=== PATIENT | male | born 1940 | race Caucasian/White ===

== ENCOUNTER 2017-10-25 10:44 | Emergency (ER) | payer MEDICARE, OTHER ==
[2017-10-25] MEDS: Potassium Chloride 20 MEQ Tab.ER PO SCH (13:52)
[2017-10-25] MEDS ORDERED: Iopamidol 755 MG/ML 150 ML Bottle IV ONE (14:28)
[2017-10-25] MEDS: oxyCODONE 5 MG Tab PO ONE (14:32)
[2017-10-25] MEDS: Potassium Chloride 20 MEQ Tab.ER PO ONE (15:54)
[2017-10-25] MEDS ORDERED: Potassium Chloride 20 MEQ Tab.ER PO SCH (21:00)
[2017-10-25 21:27] VITALS: BP 130/76
--- NOTE | 2017-10-26 10:50 | CR ---
INDICATION: Short of breath. CHEST: An AP portable upright view of the chest 10/25/2017 was compared with and revealed prominent upper lung field pulmonary vasculature, suggestion of a prominent heart suggesting CHF. Interstitial lung edema is also suggested with interstitial markings prominent. Elevated left hemidiaphragm is again noted with markedly dilated splenic flexure of colon extending into dilated transverse and descending colon. The dilatation of the colon appears to be greater than on the previous study. The possibility of a distal mechanical obstruction of the large bowel cannot be excluded. IMPRESSION: 1. CHF with interstitial lung edema, cannot exclude areas of patchy pneumonia at the lung bases. 2. Markedly elevated left hemidiaphragm again noted with dilated colon in that area. Dilatation is greater than on the previous study. The possibility of a distal obstructive process of mechanical nature at the distal colon cannot be entirely excluded - correlate clinically. MTDD
--- NOTE | 2017-10-27 09:36 | ER ---
DATE SEEN: 10/25/2017 EKG REPORT: Sinus rhythm, QT corrected is 521, prolonged. Computer read as probable anterolateral infarct. The latter seems low probability, as the only thing suggested were the Q-waves in V3, V5, V6. There is no ST elevation. I disagree; this infarct is old, and that is based on the Q-waves greater than 35 milliseconds. Consequently, I have to agree with that latter interpretation, but he has no acute anterolateral infarct. DIAGNOSIS: Sinus rhythm, nonspecific intraventricular conduction delay with probable anterolateral infarct, old. /[id number] KEVIN/MODL
--- NOTE | 2017-10-27 11:42 | ER ---
DATE SEEN: 10/25/2017 TIME SEEN: He was seen at 1055 hours. HISTORY OF PRESENT ILLNESS: This 77-year-old senior man comes in with history of difficulty passing urine. He had voiding problems noted on October 19. He had increase in swelling of his lower extremities. These symptoms resulted in increased pain and bloating of lower abdomen. This resulted in increased shortness of breath, increased bloating, and he arrived to the hospital via EMS with 2 liters of O2, 89%, went up to 91% after he came here and was on room air. He does better sitting up. Lying down makes him more short of breath. Denies lying in bed for 3 days. Denies recent surgery. The patient is a resident of [facility] and he has had diarrhea for 3 days and anorexia and prostate cancer several years ago with diagnosis treated. The patient had difficult voiding since 10/22/2017 and this voiding will occur in small amounts. This difficulty voiding has been ongoing for the last 5 days. PAST MEDICAL HISTORY: Depression, hypertension, seasonal allergic rhinitis, dry eyes, hypokalemia, constipation. CURRENT MEDICATIONS: 1. Senna. 2. Dulcolax. 3. Wellbutrin. 4. Hytrin. 5. Senokot. 6. Multivitamins. 7. Gabapentin. 8. Lasix. 9. Vitamin D. 10.Baclofen. 11.Famotidine (GERD). 12.Afrin. 13.Calcium carbonate. 14.Cyclosporine - dry eyes. ALLERGIES: See HPI. PHYSICAL EXAMINATION: VITAL SIGNS: Blood pressure 130/70, heart rate 88 and regular, respirations 20, oxygen saturation 91% on room air. BMI is 31.9 kg/m2. Weight 115.6 kg. GENERAL: The patient is in mild distress, is markedly obese. He is in distress secondary to his discomfort and fullness in his abdomen and bloating. He is attended by his family. He is very cooperative. The patient is in 60 degrees, elevates head in the bed. HEENT: Negative. Mild arterial narrowing. Pharynx without abnormalities, semi-dry. TMs negative. Hearing is slightly decreased. NECK: No bruits. No thyromegaly. No cervical adenopathy. No jugular venous distention. No accessory muscle breathing. LUNGS: Clear without rales, rhonchi, or wheezes. HEART: S1 and S2. No murmur. No irregularity of heart. ABDOMEN: Mild fullness. Moderate distention. Moderate tympany. Moderate bulging or protrusion in the anterior abdomen without fatty overhang without panniculus. Mild generalized discomfort, with mild CVA discomfort with percussion. MUSCULOSKELETAL: Mild lumbar spinous process and interspinous ligamentous discomfort. Straight leg raise is negative. Hypoactive deep tendon reflexes. NEUROLOGICAL: Cranial nerves 2 through 12 intact. Oriented x3. FINDINGS: Hemoglobin 13, white count 6700, PMNs normal at 78, lymphs 8, monos 11, eosinophils 4, platelets 345,000, hemoglobin 13.0. Abnormal complete metabolic panel with hypokalemia and hyperchloremia secondary to Lasix use. Potassium 3.2, chloride 99, sodium 136, CO2 of 29, and GFR greater than 60 with normal liver studies. Troponin less than 0.017 and urinalysis is normal with rare bacteria. X-ray demonstrates mild interstitial lung edema. Possible patchy pneumonia, but it is unlikely in view of the patient's clinical findings. Elevated left hemidiaphragm, which causes diaphragm to be elevated at least more than 40% leaving only at least 60% elevation, leaving 40% of normal lung field visible with dilation of bowel. This is no different than what was on previous x-ray. The ultrasound demonstrated more than 1000 mL of urine in the bladder. Later, the nurse performed a bladder scan and she concurred at least 1000 mL. Ibarra catheter was placed. A 16-Chinese with Coude and confirmed the suspicion of bladder outlet obstruction. This was left in place with a urinary tract bag given to the patient. Standard bag given to the patient. DIAGNOSES: 1. Prostate outlet obstruction. 2. Obesity. 3. Shortness of breath. 4. Fullness of abdomen secondary to suggestion of adynamic ileus and also extensive bladder expansion from probably prostate outlet obstruction and retained urine 1000 plus mL urine retention. 5. Anemia and hyponatremia secondary to Lasix use. 6. No evidence for urinary tract infection. PLAN: The patient was informed that he had a large hiatus hernia. This is unchanged from previous occasion when he had previous x-rays. He had low potassium. He has Lasix and he is advised to take 4 tablets of 20 mEq of potassium today and also one tablet twice a day for a week and follow up with doctor in 4 to 5 days or earlier if worse. He also is instructed to contact his doctor and make arrangements for Urology consultation. The patient's other diagnosis is large hiatus hernia unchanged and obesity. /[id number] KEVIN/ROSEMARIE NOWAK
== END 2017-10-25 16:00 | disposition home or self-care (01) ==
LOC: FB.ED 10:44
DX: N40.0 Benign prostatic hyperplasia without lower urinary tract symptoms (principal); I10 Essential (primary) hypertension; R06.02 Shortness of breath; E66.9 Obesity, unspecified; D64.9 Anemia, unspecified; E87.1 Hypo-osmolality and hyponatremia; F32.9 Major depressive disorder, single episode, unspecified; Z79.899 Other long term (current) drug therapy; Z91.09 Other allergy status, other than to drugs and biological substances; Z68.31 Body mass index [BMI] 31.0-31.9, adult
CPT/HCPCS: 36415; 51702; 51798; 71045; 80053; 81001; 83605; 83880; 84484; 85025; 85379; 93005; 99284; A9270; 93010

== ENCOUNTER 2017-12-14 14:14 | Day surgery (SDC) | payer MEDICARE, OTHER ==
[2017-12-14] MEDS ORDERED: Sodium Chloride 0.9% 10 ML Syringe FLUSH PRN (14:33)
[2017-12-14] MEDS ORDERED: Polyethylene Glycol/Electrolytes 4,000 ML Bottle PO ONE (15:00)
[2017-12-14] MEDS ORDERED: Furosemide 40 MG Tab *PTOM PO PRN (16:00)
[2017-12-14] MEDS ORDERED: hydrOXYzine HCl 25 MG Tab PO PRN (16:26)
[2017-12-14] MEDS ORDERED: Baclofen 10 MG Tab PO PRN (16:30)
--- NOTE | 2017-12-14 16:41 | PCM.HP ---
H&P History of Present Illness - General Date of Service: 12/14/17 Admit Problem/Dx: Admission Diagnosis/Problem Admission Diagnosis/Problem Diarrhea - History of Present Illness Initial Comments - Free Text/Narative: 77 yo wm who was referred with a hx of diarrhea. He has multiple medical problems. Stools have been up to 4-5 times a day. He has never had a scope. Denies any blood or mucous. - Related Data Allergies/Adverse Reactions: Allergies Allergy/AdvReac Type Severity Reaction Status Date / Time No Known Allergies Allergy Verified 10/25/17 10:49 Home Medications: Home Meds Aspirin [Ecotrin] 325 mg PO BEDTIME 04/27/16 [History] Cholecalciferol (Vitamin D3) [Vitamin D3] 1,000 units PO DAILY@1200 04/27/16 [ History] Furosemide 40 mg PO DAILY PRN 04/27/16 [History] Gabapentin 600 mg PO TID 04/27/16 [History] Multivitamin [Multi-Vitamin Daily] 1 tab PO DAILY 04/27/16 [History] Oxybutynin 5 mg PO BEDTIME 04/27/16 [History] Sennosides/Docusate Sodium [Senna-S Tablet] 1 tab BEDTIME 04/27/16 [History] Terazosin [Hytrin] 5 mg PO BEDTIME 04/27/16 [History] Baclofen 10 mg PO QID PRN 04/28/16 [History] buPROPion [Wellbutrin SR] 150 mg PO BID 04/28/16 [History] Acetaminophen [Tylenol Extra Strength] 1,000 mg PO Q6H PRN 10/25/17 [History] Calcium Carbonate/Vitamin D3 [Calcium 500-Vit D3 600 Tablet] 1 each PO TID 10/25 [History] Famotidine 20 mg PO DAILY 10/25/17 [History] Oxymetazoline HCl [Afrin] 1 spray NS BID PRN 10/25/17 [History] Potassium Chloride [Klor-Con M20] 20 meq PO BID #20 tab.er.prt 10/25/17 [Rx] Sennosides/Docusate Sodium [Senokot-S Tablet] 1 each PO BEDTIME PRN 10/25/17 [ History] cycloSPORINE [Restasis] 1 drop EYEBOTH BID 10/25/17 [History] hydrOXYzine Pamoate [Vistaril] 25 mg PO Q8H PRN 12/14/17 [History] Past Medical History HEENT History: Reports: Cataract, Impaired Vision Other HEENT History: blind L eye, cataract R eye Cardiovascular History: Reports: None Other Cardiovascular History: hole in heart Respiratory History: Reports: Pneumonia, Recurrent, SOB Other Respiratory History: hx of pleurisy Gastrointestinal History: Reports: None Genitourinary History: Reports: Other (See Below) Other Genitourinary History: PT HAS HAD A CONTINOUS CATHETER IN PLACE SINCE OCTOBER 2017 FOR PROBLEMS. Musculoskeletal History: Reports: Arthritis, Back Pain, Chronic, Fracture, Osteoarthritis Other Musculoskeletal History: L femur fx, L elbow, L elbow, L collarbone Neurological History: Reports: CVA Other Neuro History: CVA with L sided weakness Psychiatric History: Reports: Depression Endocrine/Metabolic History: Reports: None Hematologic History: Reports: None Oncologic (Cancer) History: Reports: Prostate Other Oncologic History: has seeds placed & hasn't had problems since - Infectious Disease History Infectious Disease History: Reports: Chicken Pox, Measles, Mumps - Past Surgical History HEENT Surgical History: Reports: Adenoidectomy, Oral Surgery, Tonsillectomy Cardiovascular Surgical History: Reports: None Respiratory Surgical History: Reports: None Neurological Surgical History: Reports: Laminectomy, Other (See Below) Other Neurological Surgeries/Procedures: NEUROSTIMULATOR ELECTRODE PLACED Musculoskeletal Surgical History: Reports: Hip Replacement, Knee Replacement, Shoulder Replacement, Shoulder Surgery, Other (See Below) Other Musculoskeletal Surgeries/Procedures:: LEFT FOOT SURGERY, LEFT HIP,LEFT SHOULDER,BACK. Dermatological Surgical History: Reports: None Social & Family History - Family History Family Medical History: Noncontributory Cardiac: Reports: None Respiratory: Reports: None GI: Reports: Pancreatitis, Other (See Below) Other GI Family History: sister : Reports: None Oncologic: Reports: Leukemia - Tobacco Use Smoking Status *Q: Former Smoker - Caffeine Use Caffeine Use: Reports: Coffee Caffeine Use Comment: 2 cups coffee every day - Recreational Drug Use Recreational Drug Use: No H&P Review of Systems - Review of Systems: Review Of Systems: See Below Free Text/Narrative: Poor historian. General: Reports: No Symptoms HEENT: Reports: Other (blind left eye ) Pulmonary: Reports: No Symptoms Cardiovascular: Reports: No Symptoms Gastrointestinal: Reports: No Symptoms Exam - Exam Exam: See Below - Vital Signs Vital Signs: Last Vital Signs Temp 37.6 C 12/14/17 14:30 Pulse 85 12/14/17 14:30 Resp 20 12/14/17 14:30 BP 119/66 12/14/17 14:30 Pulse Ox 91 L 12/14/17 14:30 Weight: 110.223 kg - Exam General: Alert HEENT: Hearing Intact Lungs: Clear to Auscultation, Normal Respiratory Effort Cardiovascular: Regular Rate, Regular Rhythm GI/Abdominal Exam: Normal Bowel Sounds, Soft, Non-Tender, No Organomegaly Back Exam: Normal Inspection Extremities: Other (old fracture clavicle on the left side ) - Patient Data Lab Results Last 24 hrs: Laboratory Results - last 24 hr 12/14/17 Range/Units 15:36 Sodium 138 (135-145) mmol/L Potassium 4.0 (3.5-5.3) mmol/L Chloride 100 (100-110) mmol/L Carbon Dioxide 30 (21-32) mmol/L BUN 7 (7-18) mg/dL Creatinine 0.8 (0.70-1.30) mg/dL Est Cr Clr Drug Dosing 90.95 mL/min Estimated GFR (MDRD) > 60 (>60) BUN/Creatinine Ratio 8.8 L (9-20) Glucose 100 (80-116) mg/dL Calcium 9.0 (8.6-10.2) mg/dL Result Diagrams: 12/14/17 15:36 - Problem List (1) Diarrhea SNOMED Code(s): 58202500 ICD Code: R19.7 - DIARRHEA, UNSPECIFIED Status: Acute Current Visit: Yes Qualifiers: Diarrhea type: unspecified type Qualified Code(s): R19.7 - Diarrhea, unspecified Problem List Initiated/Reviewed/Updated: Yes Orders Last 24hrs: Active Orders 24 hr Category Date Time Status Patient Status [ADT] Routine ADT 12/14/17 14:33 Active Verify Patient Consent Obtain [RC] ASDIRECTED Care 12/14/17 14:33 Active Clear Liquid Diet [DIET] Diet 12/14/17 Dinner Ordered NPO After Midnight [Nothing per Oral After Midnight Diet 12/14/17 Dinner Active Diet] [DIET] Acetaminophen [Tylenol Arthritis Pain] Med 12/14/17 16:24 Active 650 mg PO TID PRN Baclofen [Lioresal] Med 12/14/17 16:30 Active 10 mg PO QID PRN Famotidine [Pepcid] Med 12/15/17 09:00 Active 20 mg PO DAILY Furosemide [Lasix] Med 12/14/17 16:00 Active 40 mg PO DAILY PRN Gabapentin [Neurontin] Med 12/14/17 21:00 Active 600 mg PO TID Oxybutynin Med 12/14/17 21:00 Active 5 mg PO BEDTIME Sodium Chloride 0.9% [Saline Flush] Med 12/14/17 14:33 Active 10 ml FLUSH ASDIRECTED PRN Terazosin [Hytrin] Med 12/14/17 21:00 Active 5 mg PO BEDTIME buPROPion [Wellbutrin SR] Med 12/14/17 21:00 Active 150 mg PO BID cycloSPORINE [Restasis] Med 12/14/17 21:00 Hold 1 drop EYEBOTH BID hydrOXYzine HCl [Atarax] Med 12/14/17 16:26 Active 25 mg PO Q8H PRN Peripheral IV Insertion Adult [OM.PC] Routine Oth 12/14/17 14:33 Ordered Resuscitation Status Routine Resus Stat 12/14/17 14:33 Ordered Medication Orders Acetaminophen (Tylenol Arthritis Pain) 650 mg PO TID PRN PRN Reason: PAIN Baclofen (Lioresal) 10 mg PO QID PRN PRN Reason: SPASMS Bupropion HCl (Wellbutrin Sr) 150 mg PO BID ESTEVAN Famotidine (Pepcid) 20 mg PO DAILY ESTEVAN Furosemide (Lasix) 40 mg PO DAILY PRN PRN Reason: EDEMA Gabapentin (Neurontin) 600 mg PO TID ESTEVAN Hydroxyzine HCl (Atarax) 25 mg PO Q8H PRN PRN Reason: ANXIETY Non-Formulary Medication (Cyclosporine [Restasis]) 1 drop EYEBOTH BID ESTEVAN Oxybutynin Chloride (Oxybutynin) 5 mg PO BEDTIME ETSEVAN Sodium Chloride (Saline Flush) 10 ml FLUSH ASDIRECTED PRN PRN Reason: Keep Vein Open Terazosin HCl (Hytrin) 5 mg PO BEDTIME ESTEVAN Assessment/Plan Comment:: c scope . procedure and risks explained to the pt to include bleeding infection and perforation. Expressed understanding and asks us to proceed.
[2017-12-14] MEDS ORDERED: Non-Formulary Medication 1 Each (Cyclosporine [Restasis] 1 DROP) EYEBOTH SCH (21:00)
[2017-12-14] MEDS ORDERED: Oxybutynin 5 MG Tab PO SCH (21:00)
[2017-12-14] MEDS ORDERED: TERAZOSIN 5 MG PO SCH (21:00)
[2017-12-14] MEDS: Gabapentin 600 MG Tab *PTOM PO SCH (21:21)
[2017-12-14] MEDS: BUPROPION 150 MG PO SCH (21:22)
[2017-12-14] MEDS: Acetaminophen 650 MG Tab.ER *PTOM PO PRN (21:31)
[2017-12-15] MEDS ORDERED: Propofol 200 MG/20 ML SDV IV ONE (08:00)
--- NOTE | 2017-12-15 08:49 | PCM.OPNOTE ---
- General Post-Op/Procedure Note Date of Surgery/Procedure: 12/15/17 Operative Procedure(s): c scope with bx Findings: normal colon Pre Op Diagnosis: diarrhea Post-Op Diagnosis: Same Anesthesia Technique: MAC Primary Surgeon: Geovany Caicedo Anesthesia Provider: Kamilah Chandra Pathology: random colon bx Complications: None Condition: Good Free Text/Narrative:: Intake & Output 12/14/17 12/15/17 12/15/17 22:59 06:59 14:59 Intake Total 0 Output Total 600 200 Balance -600 -200 see dictation
--- NOTE | 2017-12-15 08:49 | PCM.SN ---
- Free Text/Narrative Note: pt will be discharge after the c scope.
[2017-12-15] MEDS ORDERED: Famotidine 20 MG Tab PO SCH (09:00)
[2017-12-15] MEDS: Gabapentin 600 MG Tab *PTOM PO SCH (10:03)
[2017-12-15] MEDS: Acetaminophen 650 MG Tab.ER *PTOM PO PRN (10:04)
[2017-12-15] MEDS: BUPROPION 150 MG PO SCH (10:04)
[2017-12-15 10:34] VITALS: BP 128/67
--- NOTE | 2017-12-15 10:37 | OR ---
DATE OF OPERATION: 12/15/2017 SURGEON: Geovany Caicedo MD PROCEDURE PERFORMED: Colonoscopy. PREOPERATIVE DIAGNOSIS: Diarrhea with no previous history of colonoscopy. POSTOPERATIVE DIAGNOSIS: Normal scope. INDICATIONS FOR PROCEDURE: This is a 77-year-old white male who has never had a screening colonoscopy. He also has a history of diarrhea, negative family history. He was offered and accepted colonoscopy. DESCRIPTION OF PROCEDURE: After an excellent IV sedation was administered, digital rectal exam was performed. No marked abnormality was noted. The flexible colonoscope was inserted and advanced to the cecum. The prep was marginal. There were areas of liquid particulate stool. We were able to irrigate and get a very good view of the colon. There were, however, some spots where small polyps may have been missed. The following findings were noted. Ascending colon, unremarkable. Transverse colon, unremarkable. Descending colon, unremarkable. Sigmoid and rectum, unremarkable. Random biopsies were taken throughout. Specimen was submitted in one container. The patient tolerated the procedure and was taken to Recovery in a good condition. /[id number] /KARENL
== END 2017-12-15 10:25 | disposition home or self-care (01) ==
LOC: FB.SDS 14:14 → FB.MS 14:15 → FB.SDS 12-15 10:25
PROVIDERS: ATTEND Surgery
DX: R19.7 Diarrhea, unspecified (principal); K63.89 Other specified diseases of intestine; I69.354 Hemiplegia and hemiparesis following cerebral infarction affecting left non-dominant side; F41.9 Anxiety disorder, unspecified; F32.9 Major depressive disorder, single episode, unspecified; Z87.891 Personal history of nicotine dependence; Z79.82 Long term (current) use of aspirin; Z79.899 Other long term (current) drug therapy
CPT/HCPCS: 00812; 36415; 45380; 80048; A9270; J2704; 88305